=== PATIENT | male | born 1960 | race Caucasian/White ===

== ENCOUNTER 2018-08-15 20:51 | Emergency (ER) | payer SELFPAY ==
[2018-08-15 21:30] VITALS: BP 176/72
--- NOTE | 2018-08-15 22:39 | ER Document Report ---
ED Medical Screen (RME) - General Chief Complaint: Passed Out Prior to Arrival Stated Complaint: DIZZINESS Time Seen by Provider: 08/15/18 22:36 Notes: Patient is a 58-year-old male who presents emergency department with a chief complaint of dizziness and lightheadedness. He states that that his symptoms started 2 days ago. He "passed out" when his symptoms happen. He denies any blurred vision, worse of his life, or any other symptoms. Past medical history includes hypertension. He does take amlodipine, which he takes on a regular basis. He did not have any change in his dosage. He states that he does get a 3-month supply of it and his most recent supply he received about a week ago. Exam: S1-S2. Strength 5 out of 5 in all extremities. I have greeted and performed a rapid initial assessment of this patient. A comprehensive ED assessment and evaluation of the patient, analysis of test results and completion of medical decision making process will be conducted by an additional ED providers. TRAVEL OUTSIDE OF THE [place] IN LAST 30 DAYS: No - Related Data Allergies/Adverse Reactions: No Known Allergies Allergy (Verified 08/15/18 22:30) Physical Exam - Vital signs Vitals: Temp Pulse Resp BP Pulse Ox 98.2 F 93 17 176/72 H 97 08/15/18 21:29 08/15/18 21:29 08/15/18 21:29 08/15/18 21:29 08/15/18 21:29 Course - Vital Signs Vital signs: Temp Pulse Resp BP Pulse Ox 98.2 F 93 17 176/72 H 97 08/15/18 21:29 08/15/18 21:29 08/15/18 21:29 08/15/18 21:29 08/15/18 21:29
[2018-08-15 23:08] LABS: ABSOLUTE BASOPHILS # (AUTO) 0.1 10^3/uL (0.0-0.2); ABSOLUTE EOSINOPHILS # (AUTO) 0.3 10^3/uL (0.0-0.6); ABSOLUTE LYMPHOCYTES (AUTO) 4.4 10^3/uL (0.5-4.7); ABSOLUTE MONOCYTES (AUTO) 1.4 10^3/uL (0.1-1.4); ABSOLUTE NEUT (AUTO) 5.8 10^3/uL (1.7-8.2); BASOPHILS % (AUTO) 1.2 % (0-2); EOSINOPHILS % (AUTO) 2.5 % (0-6); HEMOGLOBIN 15.3 g/dL (13.5-17.0); LYMPHOCYTES % (AUTO) 36.3 % (13-45); MEAN CORPUSCULAR HEMOGLOBIN 29.7 pg (27.0-33.4); MEAN CORPUSCULAR HGB CONC 34.7 g/dL (32.0-36.0); MEAN CORPUSCULAR VOLUME 86 fl (80-97); MONOCYTES % (AUTO) 11.8 % (3-13); PLATELET COUNT 328 10^3/uL (150-450); RED BLOOD COUNT 5.13 10^6/uL (4.35-5.55); RED CELL DISTRIBUTION WIDTH 13.8 % (11.5-14.0); SEGMENTED NEUTROPHILS % (AUTO) 48.2 % (42-78); TOTAL CELLS COUNTED % (AUTO) 100 %; WHITE BLOOD COUNT 12.1 10^3/uL (4.0-10.5)
[2018-08-15 23:25] LABS: ALANINE AMINOTRANSFERASE 38 U/L (21-72); ALKALINE PHOSPHATASE 89 U/L (38-126); ANION GAP 8 (5-19); ASPARTATE AMINO TRANSFERASE 28 U/L (17-59); BILIRUBIN,DIRECT 0.3 mg/dL (0.0-0.4); BILIRUBIN,TOTAL 0.4 mg/dL (0.2-1.3); BLOOD UREA NITROGEN 21 mg/dL (7-20); CALCIUM 9.6 mg/dL (8.4-10.2); CARBON DIOXIDE 29 mmol/L (22-30); CHLORIDE 102 mmol/L (98-107); GLUCOSE 207 mg/dL (75-110); POTASSIUM 3.8 mmol/L (3.6-5.0); SODIUM 138.9 mmol/L (137-145); TOTAL PROTEIN 6.8 g/dL (6.3-8.2)
--- NOTE | 2018-08-16 08:10 | EKG REPORT ---
SEVERITY:- ABNORMAL ECG - COMPLETE AVB WITH JUNCTIONAL RHYTHM AT 43 BPM. SINUS BRADYCARDIA 43, FIRST DEGREE AVB. RIGHT BUNDLE BRANCH BLOCK : Confirmed by: Rahul Rg MD 16-Aug-2018 08:10:03
== END 2018-08-16 02:30 | disposition left against medical advice (07) ==
LOC: ER 20:51
DX: R55 Syncope and collapse (principal); I10 Essential (primary) hypertension; Z79.899 Other long term (current) drug therapy; Z53.20 Procedure and treatment not carried out because of patient's decision for unspecified reasons
CPT/HCPCS: 36415; 80053; 85025; 93005; 93010; 99281

== ENCOUNTER 2018-08-16 12:34 | Emergency (ER) | payer OTHER ==
[2018-08-16 13:27] LABS: ABSOLUTE EOSINOPHILS # (AUTO) 0.2 10^3/uL (0.0-0.6); ABSOLUTE LYMPHOCYTES (AUTO) 3.2 10^3/uL (0.5-4.7); ABSOLUTE MONOCYTES (AUTO) 1.2 10^3/uL (0.1-1.4); ABSOLUTE NEUT (AUTO) 6.3 10^3/uL (1.7-8.2); BASOPHILS % (AUTO) 0.4 % (0-2); EOSINOPHILS % (AUTO) 2.1 % (0-6); HEMATOCRIT 44.2 % (37.9-51.0); HEMOGLOBIN 15.2 g/dL (13.5-17.0); LYMPHOCYTES % (AUTO) 29.1 % (13-45); MEAN CORPUSCULAR HEMOGLOBIN 29.6 pg (27.0-33.4); MEAN CORPUSCULAR HGB CONC 34.4 g/dL (32.0-36.0); MEAN CORPUSCULAR VOLUME 86 fl (80-97); MONOCYTES % (AUTO) 10.8 % (3-13); PLATELET COUNT 296 10^3/uL (150-450); RED BLOOD COUNT 5.14 10^6/uL (4.35-5.55); SEGMENTED NEUTROPHILS % (AUTO) 57.6 % (42-78); TOTAL CELLS COUNTED % (AUTO) 100 %; WHITE BLOOD COUNT 10.8 10^3/uL (4.0-10.5)
[2018-08-16 13:31] LABS: ALANINE AMINOTRANSFERASE 45 U/L (21-72); ALBUMIN 4.2 g/dL (3.5-5.0); ALKALINE PHOSPHATASE 91 U/L (38-126); ANION GAP 9 (5-19); ASPARTATE AMINO TRANSFERASE 27 U/L (17-59); BILIRUBIN,DIRECT 0.4 mg/dL (0.0-0.4); BILIRUBIN,TOTAL 0.6 mg/dL (0.2-1.3); BLOOD UREA NITROGEN 18 mg/dL (7-20); CALCIUM 9.8 mg/dL (8.4-10.2); CARBON DIOXIDE 27 mmol/L (22-30); CHLORIDE 103 mmol/L (98-107); CREATINE KINASE 36 U/L (55-170); GLUCOSE 314 mg/dL (75-110); POTASSIUM 4.5 mmol/L (3.6-5.0); SODIUM 138.6 mmol/L (137-145); TOTAL PROTEIN 7.3 g/dL (6.3-8.2)
[2018-08-16 13:43] LABS: CREATINE KINASE MB 0.66 ng/mL (<4.55)
[2018-08-16 13:44] LABS: TROPONIN I < 0.012 ng/mL
--- NOTE | 2018-08-16 14:04 | RADIOLOGY REPORT (SQ) ---
EXAM DESCRIPTION: CHEST SINGLE VIEW COMPLETED DATE/TIME: 08/16/2018 1:21 pm REASON FOR STUDY: arrythmia COMPARISON: None. EXAM PARAMETERS: NUMBER OF VIEWS: One view. TECHNIQUE: Single frontal radiographic view of the chest acquired. RADIATION DOSE: NA LIMITATIONS: None. FINDINGS: LUNGS AND PLEURA: No opacities, masses or pneumothorax. No pleural effusion. MEDIASTINUM AND HILAR STRUCTURES: No masses. Contour normal. HEART AND VASCULAR STRUCTURES: Heart normal in size. Normal vasculature. BONES: No acute findings. HARDWARE: None in the chest. OTHER: No other significant finding. IMPRESSION: NO ACUTE RADIOGRAPHIC FINDING IN THE CHEST. TECHNICAL DOCUMENTATION: JOB ID: [id number] [employer]- All Rights Reserved Reading location - IP/workstation name: [email or web address]
--- NOTE | 2018-08-16 15:43 | ER Document Report ---
Addendum entered and electronically signed by HARPAL CABAN FNP 08/16/18 22:43: Course - Re-evaluation Re-evalutation: 08/16/18 22:42 Transport is at bedside at this time. I have evaluated the patient and he is stable for transfer to [facility]. Heart rate at this time is in the 90s. She states that he is feeling well. - Vital Signs Vital signs: Temp Pulse Resp BP Pulse Ox 98.3 F 19 137/85 H 95 08/16/18 21:28 08/16/18 21:01 08/16/18 21:01 08/16/18 21:01 - Laboratory Result Diagrams: 08/16/18 12:18 08/16/18 12:18 Laboratory results interpreted by me: 08/16/18 08/16/18 12:18 12:18 WBC 10.8 H Glucose 314 H Creatine Kinase 36 L Addendum entered and electronically signed by HARPAL CABAN FNP 08/16/18 20:25: Course - Re-evaluation Re-evalutation: 08/16/18 20:22 Patient's heart rate changed to sinus rhythm at 1950. A repeat EKG was done showing sinus rhythm with a right bundle branch block. Heart rate 98. OK 176; QRS 152; QT 400; QTc 511. - Vital Signs Vital signs: Temp Pulse Resp BP Pulse Ox 98.7 F 17 141/76 H 97 08/16/18 17:00 08/16/18 20:01 08/16/18 20:00 08/16/18 20:01 - Laboratory Result Diagrams: 08/16/18 12:18 08/16/18 12:18 Laboratory results interpreted by me: 08/16/18 08/16/18 12:18 12:18 WBC 10.8 H Glucose 314 H Creatine Kinase 36 L Original Note: ED Cardiac - General Chief Complaint: Arrhythmia Stated Complaint: HEART ISSUES Time Seen by Provider: 08/16/18 15:25 Primary Care Provider: SHAR EASLEY DO [Primary Care Provider] - Follow up as needed Notes: 58-year-old male with hypertension and diabetes presents the emergency depa rtment after being sent over from the [place] with chief complaint of dizziness and lightheadedness. EKG there showed a complete heart block and EKG here corroborated showed a complete heart block. His symptoms started on Monday where he had a syncopal episode. He came here last night but was in the waiting room he said for hours and left. He denies any vision changes, headache, neck stiffness, shortness of breath or chest pain, nausea or vomiting, diaphoresis, diarrhea or constipation, no other complaints. The only change for him has been that he got a new prescription of amlodipine last Monday. TRAVEL OUTSIDE OF THE [place] IN LAST 30 DAYS: No - Related Data Allergies/Adverse Reactions: No Known Allergies Allergy (Verified 08/15/18 22:30) Past Medical History - Social History Smoking Status: Unknown if Ever Smoked Frequency of alcohol use: None Drug Abuse: None Family History: None Patient has suicidal ideation: No Patient has homicidal ideation: No - Past Medical History Cardiac Medical History: Reports: Hx Hypertension Endocrine Medical History: Reports: Hx Diabetes Mellitus Type 2 Renal/ Medical History: Denies: Hx Peritoneal Dialysis Past Surgical History: Reports: Hx Abdominal Surgery - splenectomy, Hx Appendectomy Review of Systems - Review of Systems Constitutional: See HPI EENT: No symptoms reported Cardiovascular: See HPI Respiratory: See HPI Gastrointestinal: See HPI Genitourinary: No symptoms reported Male Genitourinary: No symptoms reported Musculoskeletal: No symptoms reported Skin: No symptoms reported Hematologic/Lymphatic: No symptoms reported Neurological/Psychological: See HPI Physical Exam - Vital signs Vitals: Resp BP 15 158/72 H 08/16/18 12:42 08/16/18 12:42 - Notes Notes: PHYSICAL EXAMINATION: Reviewed vital signs and charting by RN GENERAL: Alert, interacts well. No acute distress. HEAD: Normocephalic, atraumatic. EYES: Pupils equal and round. Extraocular movements intact. ENT: Oral mucosa moist, tongue midline. NECK: Full range of motion. Trachea midline. LUNGS: Clear to auscultation bilaterally, no wheezes, rales, or rhonchi. No respiratory distress. HEART: Regular rate and rhythm. No murmur ABDOMEN: soft, non-tender. No distention. Bowel sounds present EXTREMITIES: Moves all 4 extremities spontaneously. No edema, No cyanosis. PSYCH: Normal affect, normal mood. SKIN: Warm, dry, normal turgor. No rashes or lesions noted. Course - Re-evaluation Re-evalutation: 08/16/18 19:[address] Gannon, anode worker on-call who agreed to come see the patient at 1830. He came and assessed the patient and got a rhythm strip which confirmed a complete heart block. He then called Dr. Anastacio Nevarez, anode worker at [facility], who agreed to accept the patient for transfer for pacemaker placement tomorrow. Patient has been completely stable and as ymptomatic during his course here. Pacer pads are at the bedside. Patient is stable for transfer. - Vital Signs Vital signs: Temp Pulse Resp BP Pulse Ox 98.7 F 15 126/69 H 96 08/16/18 17:00 08/16/18 18:01 08/16/18 18:01 08/16/18 18:01 - Laboratory Result Diagrams: 08/16/18 12:18 08/16/18 12:18 Laboratory results interpreted by me: 08/16/18 08/16/18 12:18 12:18 WBC 10.8 H Glucose 314 H Creatine Kinase 36 L Discharge - Discharge Clinical Impression: Complete heart block Condition: Stable Disposition: [facility] Referrals: SHAR EASLEY DO [Primary Care Provider] - Follow up as needed
--- NOTE | 2018-08-16 18:46 | EKG REPORT ---
SEVERITY:- ABNORMAL ECG - COMPLETE AV BLOCK WITH WIDE QRS COMPLEX : Confirmed by: Rahul Rg MD 16-Aug-2018 18:45:35
--- NOTE | 2018-08-16 19:24 | PDOC CONSULTATION ---
Consultation Consult Date: 08/16/18 Provider Consulted: KIERA ALANIZ Consult reason:: bradycardia History of Present Illness Admission Date/PCP: SHAR EASLEY DO History of Present Illness: ROXI HAMM is a 58 year old male With past medical history of diabetes mellitus and hypertension comes in with complaints of weakness and dizziness over the past few days. 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 Subsequently he went to the local ER where he had to wait for many hours and he left. [facility] he was directed back to our ER with continued symptoms of weakness and dizziness and his EKG showed complete heart block. He denies any complaints of chest pain or palpitations but does have a headache intermittently. He denies any recent history of heat or cold intolerance. He denies any history of sleep apnea and claims that he had a sleep study a few years ago which was negative for sleep apnea. He denies any recent travel or hunting trips or intake bites. Denies any recent febrile/viral illness. He has been on amlodipine for hypertension. He denies history of cigarette smoking and drinks alcohol socially. He is and lives with his . He denies any family history of coronary artery disease. Past Medical History Cardiac Medical History: Reports: Hypertension Endocrine Medical History: Reports: Diabetes Mellitus Type 2 Past Surgical History Past Surgical History: Reports: Appendectomy Social History Information Source: Patient Lives with: Family Smoking Status: Never Smoker Frequency of Alcohol Use: Social Hx Recreational Drug Use: No Family History Family History: Reviewed & Not Pertinent Parental Family History Reviewed: Yes - Not pertinent Children Family History Reviewed: No - Not relevant Sibling(s) Family History Reviewed.: Yes - Not pertinent Medication/Allergy Allergies/Adverse Reactions: No Known Allergies Allergy (Verified 08/15/18 22:30) Review of Systems Constitutional: PRESENT: fatigue, weakness Neurological: PRESENT: dizziness, syncope Physical Exam Vital Signs: Temp Pulse Resp BP Pulse Ox 98.7 F 15 126/69 H 96 08/16/18 17:00 08/16/18 18:01 08/16/18 18:01 08/16/18 18:01 Intake & Output 08/15/18 08/16/1819 06:59 06:59 06:59 Weight 104 kg General appearance: PRESENT: no acute distress Head exam: PRESENT: atraumatic, normocephalic Eye exam: PRESENT: conjunctiva pink Mouth exam: PRESENT: neck supple Neck exam: PRESENT: full ROM Respiratory exam: PRESENT: clear to auscultation luis angel, unlabored Cardiovascular exam: PRESENT: bradycardia, +S1, +S2 Pulses: PRESENT: normal carotid pulses, normal radial pulses, normal dorsalis pedis pul GI/Abdominal exam: PRESENT: normal bowel sounds, soft Extremities exam: PRESENT: full ROM Musculoskeletal exam: PRESENT: full ROM Neurological exam: PRESENT: alert, awake, oriented to person, oriented to place, oriented to time, oriented to situation, CN II-XII grossly intact, motor sensory deficit Results Laboratory Results: 08/16/18 12:18 08/16/18 12:18 08/16/18 08/16/18 12:18 12:18 WBC 10.8 H RBC 5.14 Hgb 15.2 Hct 44.2 MCV 86 MCH 29.6 MCHC 34.4 RDW 14.0 Plt Count 296 Seg Neutrophils % 57.6 Lymphocytes % 29.1 Monocytes % 10.8 Eosinophils % 2.1 Basophils % 0.4 Absolute Neutrophils 6.3 Absolute Lymphocytes 3.2 Absolute Monocytes 1.2 Absolute Eosinophils 0.2 Absolute Basophils 0.0 Sodium 138.6 Potassium 4.5 Chloride 103 Carbon Dioxide 27 Anion Gap 9 BUN 18 Creatinine 0.63 Est GFR ( Amer) > 60 Est GFR (Non-Af Amer) > 60 Glucose 314 H Calcium 9.8 Total Bilirubin 0.6 AST 27 ALT 45 Alkaline Phosphatase 91 Total Protein 7.3 Albumin 4.2 08/16/18 08/16/18 08/16/18 12:18 12:18 16:12 Creatine Kinase 36 L CK-MB (CK-2) 0.66 Troponin I < 0.012 < 0.012 Impressions: Chest X-Ray 08/16/18 13:09 IMPRESSION: NO ACUTE RADIOGRAPHIC FINDING IN THE CHEST. Assessment & Plan - Diagnosis (2) Diabetes mellitus Qualifiers: Diabetes mellitus type: type 2 (3) Hypertension Qualifiers: Hypertension type: essential hypertension Qualified Code(s): I10 - Essential (primary) hypertension - Notes Notes: Reviewed labs, EKG and telemetry tracings. 58-year-old male with diabetes and hypertension admitted with symptomatic complete AV dissociation. No obvious reversible etiology noted at this time. Patient will need transvenous permanent pacemaker placement and we will transfer patient to [facility] for the same. We do recommend to have pacing pads on with bedside transvenous pacemaker available in case he develops symptoms again or bradycardia worsens. In that case he may need a trans-venous temporary pacemaker. Patient will also need an echocardiogram before pacemaker placement to evaluate LV ejection fraction. W ill recommend to check thyroid profile to rule out any thyroid dysfunction. Patient and his family were educated in detail about his current diagnosis and indications for pacemaker placement and they are agreeable to proceed with transfer to [facility] and pacemaker placement. Plan of care was discussed with the ER physician and cardiac connections at [facility]. - Time Time Spent: 50 to 70 Minutes
[2018-08-16 22:54] VITALS: BP 146/88
--- NOTE | 2018-08-17 07:34 | EKG REPORT ---
SEVERITY:- ABNORMAL ECG - SINUS RHYTHM RIGHT BUNDLE BRANCH BLOCK : Confirmed by: Rahul Rg MD 17-Aug-2018 07:33:34
== END 2018-08-16 22:55 | disposition short-term general hospital (02) ==
LOC: ER 12:34
DX: I44.2 Atrioventricular block, complete (principal); R42 Dizziness and giddiness; I10 Essential (primary) hypertension; E11.9 Type 2 diabetes mellitus without complications
CPT/HCPCS: 36415; 71045; 80053; 82550; 82553; 84484; 85025; 93005; 93010; 99285

== ENCOUNTER 2019-03-07 19:29 | Emergency (ER) | payer OTHER ==
--- NOTE | 2019-03-07 20:23 | ER Document Report ---
ED Medical Screen (RME) - General Chief Complaint: Other Stated Complaint: PACEMAKER FIRED Time Seen by Provider: 03/07/19 20:16 Primary Care Provider: SHAR EASLEY DO [Primary Care Provider] - Follow up as needed TRAVEL OUTSIDE OF THE [place] IN LAST 30 DAYS: No - HPI Notes: 03/07/19 20:20 Patient is a 59-year-old male who presents complaining of his heart rate going low intermittently over the past couple days and his pacemaker alerting him when he interrogated it at home. He usually checks it every 2 days. Patient states that he is had a little nasal congestion and discharge for the past couple days, but has otherwise been feeling well. He does not have any chest pain or shortness of breath at this time. Denies drug allergies. His unit is [employer] and his mechanical drawing teacher is Dr. Debi Nevarez. No fever or abdominal pain. I have treated and performed a rapid initial assessment of this patient. A comprehensive ED assessment and evaluation of the patient, analysis of test results and completion of medical decision making process will be conducted by additional ED providers. PHYSICAL EXAMINATION: GENERAL: Well-appearing, well-nourished and in no acute distress. A&Ox4. Answers questions appropriately. Heart: Regular rate mildly bradycardic. Lungs: CTAB - Related Data Allergies/Adverse Reactions: No Known Allergies Allergy (Verified 03/07/19 20:15) Past Medical History - Past Medical History Cardiac Medical History: Reports: Hx Hypertension Endocrine Medical History: Reports: Hx Diabetes Mellitus Type 2 Renal/ Medical History: Denies: Hx Peritoneal Dialysis Past Surgical History: Reports: Hx Abdominal Surgery - splenectomy, Hx Appendectomy Physical Exam - Vital signs Vitals: Temp Pulse Resp BP Pulse Ox 98.2 F 53 L 20 138/62 H 96 03/07/19 19:47 03/07/19 19:47 03/07/19 19:47 03/07/19 19:47 03/07/19 19:47 Course - Vital Signs Vital signs: Temp Pulse Resp BP Pulse Ox 98.2 F 53 L 20 138/62 H 96 03/07/19 19:47 03/07/19 19:47 03/07/19 19:47 03/07/19 19:47 03/07/19 19:47 Doctor's Discharge - Discharge Referrals: SHAR EASLEY DO [Primary Care Provider] - Follow up as needed
--- NOTE | 2019-03-07 21:23 | RADIOLOGY REPORT (SQ) ---
EXAM DESCRIPTION: XR CHEST 2 VIEWS COMPLETED DATE/TME: 03/07/2019 20:19 CLINICAL HISTORY: 59 years, Male, pacer alerted him COMPARISON: Prior study from 08/16/2018 NUMBER OF VIEWS: Two TECHNIQUE: Frontal and lateral radiographs were acquired LIMITATIONS: None. FINDINGS: Left subclavian approach dual lead cardiac pacer is in position. Cardiac and mediastinal contours are stable. Lungs are clear. No pleural effusion or pneumothorax. IMPRESSION: No acute disease. copyright 2010 [employer]- All Rights Reserved
[2019-03-07 22:42] LABS: ABSOLUTE BASOPHILS # (AUTO) 0.1 10^3/uL (0.0-0.2); ABSOLUTE EOSINOPHILS # (AUTO) 0.3 10^3/uL (0.0-0.6); ABSOLUTE LYMPHOCYTES (AUTO) 3.4 10^3/uL (0.5-4.7); ABSOLUTE MONOCYTES (AUTO) 1.4 10^3/uL (0.1-1.4); ABSOLUTE NEUT (AUTO) 8.4 10^3/uL (1.7-8.2); BASOPHILS % (AUTO) 0.5 % (0-2); EOSINOPHILS % (AUTO) 2.5 % (0-6); HEMATOCRIT 44.6 % (37.9-51.0); HEMOGLOBIN 15.1 g/dL (13.5-17.0); LYMPHOCYTES % (AUTO) 25.2 % (13-45); MEAN CORPUSCULAR HEMOGLOBIN 29.5 pg (27.0-33.4); MEAN CORPUSCULAR HGB CONC 33.9 g/dL (32.0-36.0); MEAN CORPUSCULAR VOLUME 87 fl (80-97); MONOCYTES % (AUTO) 10.2 % (3-13); PLATELET COUNT 298 10^3/uL (150-450); RED BLOOD COUNT 5.12 10^6/uL (4.35-5.55); RED CELL DISTRIBUTION WIDTH 13.8 % (11.5-14.0); SEGMENTED NEUTROPHILS % (AUTO) 61.6 % (42-78); TOTAL CELLS COUNTED % (AUTO) 100 %; WHITE BLOOD COUNT 13.7 10^3/uL (4.0-10.5)
[2019-03-07 22:58] LABS: ALKALINE PHOSPHATASE 152 U/L (38-126); ANION GAP 10 (5-19); ASPARTATE AMINO TRANSFERASE 20 U/L (17-59); BILIRUBIN,DIRECT 0.3 mg/dL (0.0-0.4); BILIRUBIN,TOTAL 0.5 mg/dL (0.2-1.3); BLOOD UREA NITROGEN 19 mg/dL (7-20); CALCIUM 9.7 mg/dL (8.4-10.2); CARBON DIOXIDE 27 mmol/L (22-30); CHLORIDE 99 mmol/L (98-107); POTASSIUM 4.5 mmol/L (3.6-5.0); TOTAL PROTEIN 7.2 g/dL (6.3-8.2)
[2019-03-07 23:07] LABS: GLUCOSE 481 mg/dL (75-110)
[2019-03-08] MEDS ORDERED: NORMAL SALINE 500 ML IV ONE (00:34)
[2019-03-08] MEDS ORDERED: NORMAL SALINE 1000 ML 1,000 ML IV PRN (00:34)
[2019-03-08 00:51] LABS: APPEARANCE,URINE CLEAR; BILIRUBIN,URINE NEGATIVE (NEGATIVE); COLOR,URINE STRAW; GLUCOSE, URINE >=500 mg/dL (NEGATIVE); KETONES,URINE TRACE mg/dL (NEGATIVE); LEUKOCYTE ESTERASE,URINE NEGATIVE (NEGATIVE); NITRITE,URINE NEGATIVE (NEGATIVE); PROTEIN,URINE NEGATIVE (NEGATIVE); URINE SPECIFIC GRAVITY 1.036; UROBILINOGEN,URINE NEGATIVE mg/dL (<2.0)
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
[2019-03-08 03:04] VITALS: BP 120/67
--- NOTE | 2019-03-08 08:29 | EKG REPORT ---
SEVERITY:- ABNORMAL ECG - A-V DUAL-PACED RHYTHM WITH SOME INHIBITION : Confirmed by: Rahul Rg MD 08-Mar-2019 08:28:37
== END 2019-03-08 02:38 | disposition home or self-care (01) ==
LOC: ER 19:29
DX: R00.2 Palpitations (principal); E11.65 Type 2 diabetes mellitus with hyperglycemia; Z95.0 Presence of cardiac pacemaker; R35.1 Nocturia; I10 Essential (primary) hypertension; Z79.899 Other long term (current) drug therapy
CPT/HCPCS: 93005; 99284; 96360; 96361; 36415; 82962; 85025; 80053; 81001; 84484; 71046; 93010; J7030; J7040